=== PATIENT | male | born 1975 | race Caucasian/White ===

== ENCOUNTER 2016-06-09 21:33 | Emergency (ER) | payer OTHER ==
[~2016-06-09] VITALS: Ht 170.2 cm; Wt 132.3 kg
[~2016-06-09 21:33] MED LIST: PERCOCET 5/31 TABLET PO; ZANTAC150 MG PO
[2016-06-09 22:19] LABS: HEMATOCRIT 44.7 % (38.0-50.0); MCH 32.7 PG (29.0-34.0); MCV 96.1 FL (86-99); MEAN PLAT.VOLUME 9.5 uM^3 (9.0-12.4); PLATELET COUNT 295 K/uL (156-360); RBC DIS.WIDTH-CV 12.8 % (11.8-14.6); RBC DIS.WIDTH-SD 45.3 % (39-53); RED BLOOD COUNT 4.65 M/uL (4.00-5.50); WHITE BLOOD COUNT 11.8 K/uL (4.1-10.2)
[2016-06-09 22:29] LABS: CHLORIDE 105 mEq/L (99-109); POTASSIUM 4.5 mEq/L (3.7-5.4); SODIUM 139 mEq/L (136-147)
[2016-06-09 22:31] LABS: GLUCOSE 149 mg/dL (70-99)
[2016-06-09 22:33] LABS: ANION GAP 8 MEQ/L (2-14)
[2016-06-09 22:35] LABS: GFR ESTIMATE (CALCULATED) > 59 mL/min/
[2016-06-09 22:36] LABS: UREA NITROGEN (BUN) 16 mg/dL (9-23)
[2016-06-10 02:48] VITALS: BP 129/81
[2016-06-10 11:17] LABS: POC NON-PRINT COM 1 ND
== END 2016-06-10 02:49 | disposition home or self-care (01) ==
LOC: EME 21:33 → EXP 21:33
PROVIDERS: Physician Assistant
DX: K92.2 Gastrointestinal hemorrhage, unspecified (principal); Z87.891 Personal history of nicotine dependence
CPT/HCPCS: 74176; 80048; 82272; 85027; 86850; 86900; 86901; 99281; 99283

== ENCOUNTER 2016-09-15 05:18 | Emergency (ER) | payer OTHER ==
[~2016-09-15] VITALS: Ht 170.2 cm; Wt 127.9 kg
[2016-09-15 05:48] LABS: HEMATOCRIT 45.6 % (38.0-50.0); MCH 33.5 PG (29.0-34.0); MCHC 34.4 G/DL (30.0-36.0); MCV 97.2 FL (86-99); MEAN PLAT.VOLUME 9.6 uM^3 (9.0-12.4); PLATELET COUNT 337 K/uL (156-360); RBC DIS.WIDTH-CV 12.5 % (11.8-14.6); RBC DIS.WIDTH-SD 44.6 % (39-53); RED BLOOD COUNT 4.69 M/uL (4.00-5.50); WHITE BLOOD COUNT 10.9 K/uL (4.1-10.2)
[2016-09-15 05:57] LABS: CHLORIDE 106 mEq/L (99-109); POTASSIUM 4.4 mEq/L (3.7-5.4); SODIUM 140 mEq/L (136-147)
[2016-09-15 05:59] LABS: GLUCOSE 97 mg/dL (70-99)
[2016-09-15 06:00] LABS: ANION GAP 10 MEQ/L (2-14)
[2016-09-15 06:02] LABS: GFR ESTIMATE (CALCULATED) > 59 mL/min/
[2016-09-15 06:03] LABS: UREA NITROGEN (BUN) 15 mg/dL (9-23)
[2016-09-15 06:09] LABS: TROP-I INTERPRETATION NEGATIVE; TROPONIN-I < 0.01 ng/mL (0.0-0.30)
[2016-09-15] MEDS ORDERED: PRILOSEC20 MG PO (08:34)
[2016-09-15] MEDS ORDERED: CITALOPRAM HBR20 MG PO (08:34)
[2016-09-15] MEDS ORDERED: VICTOZA 2-0.6 MG/0.1 SC (08:35)
[2016-09-15 09:33] LABS: TROP-I INTERPRETATION NEGATIVE; TROPONIN-I < 0.01 ng/mL (0.0-0.30)
[2016-09-15 10:21] VITALS: BP 128/74
== END 2016-09-15 10:25 | disposition home or self-care (01) ==
LOC: EME 05:18
PROVIDERS: Physician Assistant
DX: R07.89 Other chest pain (principal); K21.9 Gastro-esophageal reflux disease without esophagitis; Z87.891 Personal history of nicotine dependence; Z88.6 Allergy status to analgesic agent; Z88.8 Allergy status to other drugs, medicaments and biological substances
CPT/HCPCS: 71020; 80048; 84484; 85027; 93005; 99281; 99284

== ENCOUNTER 2016-11-05 22:42 | Observation (INO) | payer SELFPAY ==
[~2016-11-05] VITALS: Ht 170.2 cm; Wt 128.0 kg
[~2016-11-05 22:42] MED LIST changes: +CITALOPRAM HBR20 MG PO; +PRILOSEC20 MG PO; +VICTOZA 2-0.6 MG/0.1 SC
[2016-11-05 23:39] LABS: ADD MIUA? NO; BILIRUBIN NEGATIVE; BLOOD NEGATIVE; COLOR YELLOW ((YELLOW)); GLUCOSE (STRIP) NEGATIVE; KETONES NEGATIVE; LEUKOCYTES NEGATIVE; NITRITE NEGATIVE; PROTEIN (STRIP) NEGATIVE; SPECIFIC GRAVITY 1.023 (1.000-1.030); UCUL ADDED? NO; UROBILINOGEN 0.2 MG/DL (0.2-1.0)
[2016-11-05 23:42] LABS: WHITE BLOOD COUNT 9.6 K/uL (4.1-10.2)
[2016-11-05 23:43] LABS: HEMATOCRIT 37.9 % (38.0-50.0); MCH 33.7 PG (29.0-34.0); MCHC 35.1 G/DL (30.0-36.0); MCV 95.9 FL (86-99); MEAN PLAT.VOLUME 9.4 uM^3 (9.0-12.4); PLATELET COUNT 306 K/uL (156-360); RBC DIS.WIDTH-CV 13.1 % (11.8-14.6); RED BLOOD COUNT 3.95 M/uL (4.00-5.50)
[2016-11-05 23:46] LABS: CHLORIDE 107 mEq/L (99-109); MAGNESIUM 2.1 mg/dL (1.3-2.7); POTASSIUM 3.6 mEq/L (3.7-5.4); SODIUM 139 mEq/L (136-147)
[2016-11-05 23:48] LABS: GLUCOSE 124 mg/dL (70-99)
[2016-11-05 23:49] LABS: ANION GAP 8 MEQ/L (2-14)
[2016-11-05 23:52] LABS: GFR ESTIMATE (CALCULATED) > 59 mL/min/; UREA NITROGEN (BUN) 20 mg/dL (9-23)
[2016-11-05 23:54] LABS: TOTAL CK 1942 IU/L (1-294)
[2016-11-05 23:55] LABS: CREATINE KINASE 1942 IU/L (1-294)
[2016-11-06] LABS: CK-MB 7.5 ng/mL (0.0-4.9)
[2016-11-06] MEDS ORDERED: B-121000 MC2 PO (01:04)
[2016-11-06] MEDS ORDERED: DAILY MULTIPLE1 EACH PO (01:06)
[2016-11-06] MEDS ORDERED: ALEVE220 MG PO (01:11)
[2016-11-06 02:40] VITALS: BP 137/63
[2016-11-06 04:00] VITALS: BP 122/75
[2016-11-06 08:24] LABS: POINT-OF-CARE METER ID UU14162513
[2016-11-06 09:30] VITALS: BP 126/71
[2016-11-06 11:09] LABS: C-REACTIVE PROTEIN 11.1 MG/L (0-10)
[2016-11-06 12:07] VITALS: BP 124/70
[2016-11-06 12:36] LABS: POINT-OF-CARE METER ID UU13113831
[2016-11-06 17:10] VITALS: BP 135/75
[2016-11-06 17:41] LABS: POINT-OF-CARE METER ID UU13113831
[2016-11-06 19:23] VITALS: BP 122/73
[2016-11-06 21:30] LABS: POINT-OF-CARE METER ID UU14162513
[2016-11-07 01:00] VITALS: BP 121/69
[2016-11-07 04:45] VITALS: BP 116/59
[2016-11-07 06:02] LABS: HEMATOCRIT 39.4 % (38.0-50.0); MCH 32.8 PG (29.0-34.0); MCHC 33.5 G/DL (30.0-36.0); MEAN PLAT.VOLUME 9.6 uM^3 (9.0-12.4); PLATELET COUNT 287 K/uL (156-360); RBC DIS.WIDTH-CV 13.3 % (11.8-14.6); RBC DIS.WIDTH-SD 47.8 % (39-53); RED BLOOD COUNT 4.02 M/uL (4.00-5.50)
[2016-11-07 06:24] LABS: ALKALINE PHOSPHATASE 90 IU/L (3-129); ANION GAP 6 MEQ/L (2-14); CHLORIDE 105 MEQ/L (99-109); GFR ESTIMATE (CALCULATED) > 59 mL/min/; GLUCOSE 110 mg/dL (70-99); SAMPLE HEMOLYSIS CHECK 0; SAMPLE ICTERIC CHECK 0; SAMPLE LIPEMIA CHECK 0; SODIUM 138 MEQ/L (136-147); TOTAL BILIRUBIN 0.3 MG/DL (0.0-1.0); UREA NITROGEN (BUN) 14 mg/dL (9-23)
[2016-11-07 06:28] LABS: POTASSIUM 4.4 MEQ/L (3.7-5.4)
[2016-11-07 07:14] LABS: Estimated Average Glucose 114 mg/dL (70-123); HEMOGLOBIN A1c (GLYCOHEMOGLOB) 5.6 % HGB (Below 5.7)
[2016-11-07 09:50] LABS: CREATINE KINASE 391 IU/L (1-294)
[2016-11-07 12:32] LABS: POINT-OF-CARE METER ID UU14162513
[2016-11-07] MEDS ORDERED: MOTRIN600 MG PO (16:21)
[2016-11-07] MEDS ORDERED: TRAMADOL HCL50 MG PO (16:21)
[2016-11-07 16:31] VITALS: BP 124/63
[2016-11-07 17:40] LABS: POINT-OF-CARE METER ID UU14162513
== END 2016-11-07 19:06 | disposition home or self-care (01) ==
LOC: EME 22:42 → 5WEST 11-06 00:50 → EDOF 11-06 00:50 → ENRESERV 11-06 01:04 → 5WEST 11-06 02:28
PROVIDERS: Emergency Medicine; Hospitalist
DX: R20.0 Anesthesia of skin (principal); M62.82 Rhabdomyolysis; E11.9 Type 2 diabetes mellitus without complications; M79.89 Other specified soft tissue disorders; G56.03 Carpal tunnel syndrome, bilateral upper limbs; M25.642 Stiffness of left hand, not elsewhere classified; M25.641 Stiffness of right hand, not elsewhere classified; M79.642 Pain in left hand; M79.641 Pain in right hand; Z83.3 Family history of diabetes mellitus; Z91.040 Latex allergy status; Z88.8 Allergy status to other drugs, medicaments and biological substances
CPT/HCPCS: 72125; 80048; 80053; 81003; 82550; 82553; 82948; 83036; 83735; 83880; 84100; 84443; 85027; 85651; 86038; 86140; 86430; G0378; J1650; J1940; J7030